=== PATIENT | female | born 1965 | race Caucasian/White ===

== ENCOUNTER 2019-01-03 12:54 | Emergency (ER) | payer OTHER, SELFPAY ==
--- NOTE | 2019-01-03 13:17 | RAD ---
3 views right hand: 01/03/2019 COMPARISON: None HISTORY: Injury, pain FINDINGS: No fracture or dislocation. No radiopaque foreign body or subcutaneous gas. IMPRESSION: No acute findings.
== END 2019-01-03 13:40 | disposition home or self-care (01) ==
LOC: MADERS 12:54
DX: S60.221A Contusion of right hand, initial encounter (principal); F17.210 Nicotine dependence, cigarettes, uncomplicated; W22.8XXA Striking against or struck by other objects, initial encounter